=== PATIENT | female | born 1995 | race Caucasian/White ===

== ENCOUNTER 2021-02-19 12:09 | Outpatient (REF) | payer SELFPAY ==
[2021-02-19 15:46] LABS: Binax Now Covid-19 Ag Positive (Negative)
[2021-02-19 15:47] LABS: Binax Internal Control QC Valid; Binax Lot number: 9864
== END 2021-02-19 12:10 | disposition home or self-care (01) ==
LOC: HO.LAB 12:09
PROVIDERS: Visit Provider Internal Medicine
DX: Z20.822 Contact with and (suspected) exposure to COVID-19 (principal)
CPT/HCPCS: 36415